=== PATIENT | male | born 1995 | race Caucasian/White ===

== ENCOUNTER 2018-06-11 16:15 | Emergency (ER) | payer BC ==
--- NOTE | 2018-06-11 16:22 | PDOC ---
Rapid Medical Evaluation Time Seen by Provider: 06/11/18 16:21 Medical Evaluation: 06/11/18 16:21 I performed a brief in-person evaluation of this patient. Chief complaint: Ear pain x 1 day, recent cold, history of ITP Pertinent physical exam findings: Afebrile, no mastoid tenderness, external ear normal I have ordered the following: None Patient will proceed to ED for further evaluation. Discharge Disposition - Diagnosis Ear pain, left - Referrals - Patient Instructions - Post Discharge Activity
[2018-06-11 16:25] VITALS: BP 151/85; PULSE 87; TEMP 98.5; BMI 24.3
--- NOTE | 2018-06-11 17:05 | PDOC ---
History of Present Illness - General Chief Complaint: Ear Problem Stated Complaint: EAR PAIN Time Seen by Provider: 06/11/18 16:21 History Source: Patient Exam Limitations: Clinical Condition - History of Present Illness Initial Comments: 06/11/18 17:13 Patient with no significant past medical history present with complaint of left ear pain since this morning which has been worsening. Denies fever, chills, decreased hearing. Denies any other symptoms. Denies JUNG, dizziness, N/V Timing/Duration: other (12hrs) Past History - Past Medical History Allergies/Adverse Reactions: Allergies Allergy/AdvReac Type Severity Reaction Status Date / Time No Known Allergies Allergy Verified 06/11/18 16:25 Home Medications: Ambulatory Orders Naproxen 500 mg PO BID PRN #20 tablet 06/11/18 Neomycin/Polymyxin B/Hydrocort [Wzpezsuk-Rggyqeiru-Id Ear Susp] 4 drop OT Q6H 5 Days #1 bottle 06/11/18 COPD: No - Immunization History Immunization Up to Date: Yes - Suicide/Smoking/Psychosocial Hx Smoking History: Never smoked Information on smoking cessation initiated: No Hx Alcohol Use: No Drug/Substance Use Hx: No Review of Systems - Review of Systems Able to Perform ROS?: Yes Is the patient limited Pashto proficient: No Constitutional: No: Fever, Malaise, Weakness HEENTM: Yes: Symptoms Reported, See HPI, Ear Pain (left). No: Eye Pain, Blurred Vision, Tearing, Recent change in vision, Double Vision, Cataracts, Ocular Prothesis, Ear Discharge, Nose Pain, Nose Congestion, Tinnitus, Nose Bleeding, Hearing Loss, Throat Pain, Throat Swelling, Mouth Pain, Dental Problems, Difficulty Swallowing, Mouth Swelling, Other Respiratory: No: Symptoms reported, See HPI, Cough, Orthopnea, Shortness of Breath, SOB with Exertion, SOB at Rest, Stridor, Wheezing, Productive cough, Hemoptysis, Other Cardiac (ROS): No: Symptoms Reported, See HPI, Chest Pain, Edema, Irregular Heart Rate, Lightheadedness, Palpitations, Syncope, Chest Tightness, Other ABD/GI: No: Nausea, Vomiting All Other Systems: Reviewed and Negative *Physical Exam - Vital Signs Last Vital Signs Temp Pulse Resp BP Pulse Ox 98.5 F 87 16 151/85 99 06/11/18 16:22 06/11/18 16:22 06/11/18 16:22 06/11/18 16:22 06/11/18 16:22 - Physical Exam Comments: 06/11/18 17:18 GENERAL: Well developed, well nourished. Awake and alert. No acute distress. HEENT: Moderate erythema in left ear canal. Tympanic membrane normal mall right ear canal exam. Normocephalic, atraumatic. PERRLA, EOMI. No conjunctival pallor. Sclera are non-icteric. Moist mucous membranes. Oropharynx is clear. NECK: Supple. Full ROM. CARDIOVASCULAR: Regular rate and rhythm. No murmurs, rubs, or gallops. Distal pulses are 2+ and symmetric. PULMONARY: No evidence of respiratory distress. Lungs clear to auscultation bilaterally. No wheezing, rales or rhonchi. ABDOMINAL: Soft. Non-tender. Non-distended. No rebound or guarding. No organomegaly. Normoactive bowel sounds. MUSCULOSKELETAL Normal range of motion at all joints. No tenderness to left TMJ which is worse with occlusion of mouth against resistance. SKIN: Warm and dry. Normal capillary refill. NEUROLOGICAL: Alert, awake, appropriate. Gait is normal without ataxia. PSYCHIATRIC: Cooperative. Good eye contact. Appropriate mood General Appearance: Yes: Nourished, Appropriately Dressed. No: Apparent Distress Medical Decision Making - Medical Decision Making 06/11/18 17:15 Patient with no significant past medical history present with complaint of left ear pain since this morning which has been worsening. Denies fever, chills, decreased hearing. Denies any other symptoms. Denies JUNG, dizziness, N/V Exam significant for moderate erythema in left inner ear canal. TM normal. right ear canal normal. mild tenderness over left TMJ which is worse with occlusion of mouth against resistance. Patient stable for outpatient treatment of otitis externa with neomycin- polymycin-hydrocort ear suspension and naproxen for TMJ arthralgia with oral surgery follow-up *DC/Admit/Observation/Transfer Diagnosis at time of Disposition: Ear pain, left Left otitis externa Qualifiers: Otitis externa type: unspecified type Chronicity: acute Qualified Code(s): H60.502 - Unspecified acute noninfective otitis externa, left ear TMJ arthralgia Qualifiers: Laterality: left Qualified Code(s): M26.622 - Arthralgia of left temporomandibular joint - Discharge Dispostion Disposition: HOME Condition at time of disposition: Stable Decision to Admit order: No - Prescriptions Prescriptions: Naproxen 500 mg PO BID PRN #20 tablet PRN Reason: jaw pain Neomycin/Polymyxin B/Hydrocort [Wjwxfjxk-Inpmdotqi-Uy Ear Susp] 4 drop OT Q6H 5 Days #1 bottle - Referrals Referrals: Scott Rivera MD [Non Staff, Medical] - - Patient Instructions Printed Discharge Instructions: TMJ Syndrome (Alternative Therapy), Temporomandibular Disorder Additional Instructions: Take prescribed medications as prescribed. Follow-up with referred dentist if left jaw pain does not improve in 4 days - Post Discharge Activity
== END 2018-06-11 17:15 | disposition home or self-care (01) ==
LOC: JERFT 16:15
DX: H60.502 Unspecified acute noninfective otitis externa, left ear (principal); M26.622 Arthralgia of left temporomandibular joint
CPT/HCPCS: 99281-25

== ENCOUNTER 2019-04-08 10:02 | Emergency (ER) | payer BC, OTHER ==
[2019-04-08 10:13] VITALS: BP 143/45; PULSE 71; TEMP 99.6; BMI 21.2
[2019-04-08] MEDS ORDERED: ACETAMINOPHEN 500 MG TABLET (FP) PO ONE (10:51)
[2019-04-08] MEDS ORDERED: ACETAMINOPHEN 325 MG TABLET (FP) ONE (10:53)
[2019-04-08 11:39] LABS: BASO % 0.5 % (0-2.0); EOS % 0.2 % (0-4.5); HEMATOCRIT 42.8 % (35.4-49); HEMOGLOBIN 14.6 GM/dL (11.7-16.9); LYMPH % 38.1 % (8-40); MCH 29.7 pg (25.7-33.7); MEAN CELL VOLUME 87.4 fl (80-96); MEAN PLT VOLUME 8.1 fl (7.5-11.1); MONO % 15.5 % (3.8-10.2); NEUT % 45.7 % (42.8-82.8); PLATELET COUNT 129 K/MM3 (134-434); RDW 13.3 % (11.9-15.9); WHITE BLOOD COUNT 4.3 K/mm3 (4.0-10.0)
[2019-04-08 11:50] LABS: INR 1.11 (0.83-1.09); PROTHROMBIN TIME (PATIENT) 13.1 SEC (9.7-13.0)
[2019-04-08 12:12] LABS: ALBUMIN 3.8 g/dl (3.4-5.0); BILIRUBIN,TOTAL 0.4 mg/dL (0.2-1); BLOOD UREA NITROGEN 22.8 mg/dL (7-18); CALCIUM 8.9 mg/dL (8.5-10.1); CREATININE 1.3 mg/dL (0.55-1.3); POTASSIUM 4.3 mmol/L (3.5-5.1)
--- NOTE | 2019-04-08 12:28 | PDOC ---
History of Present Illness - General History Source: Patient Exam Limitations: No Limitations - History of Present Illness Initial Comments: 04/08/19 11:26 23-year-old male presents to ED with complaints of fever since Thursday, myalgia , cough, and petechiae to his left shoulder and left chest. Patient states history of ITP in the past with frequent admissions with last admission being approximately 2-3 year ago at [facility]. Patient denies blood in his urine, bloody stool, coughing up blood, or recent head injury. Patient states took nothing for the fever above and decided come to the ER for further evaluation Is this a multiple visit Asthma Patient?: No Timing/Duration: other (3 to 4 days) Severity: moderate Associated Symptoms: reports: cough, fever/chills, other <Susan Tobin - Last Filed: 04/08/19 14:11> <Dorina Manzano - Last Filed: 04/09/19 19:54> - General Chief Complaint: Pain, Acute Stated Complaint: RE VISIT Time Seen by Provider: 04/08/19 10:28 Past History - Travel Traveled outside of the country in the last 30 days: No Close contact w/someone who was outside of country & ill: No - Past Medical History COPD: No Other medical history: ITP - Immunization History Immunization Up to Date: Yes - Psycho Social/Smoking Cessation Hx Smoking History: Never smoked Hx Alcohol Use: No Drug/Substance Use Hx: No Patient Lives Alone: No Lives with/in: parents <Susan Tobin - Last Filed: 04/08/19 14:11> <Dorina Manzano - Last Filed: 04/09/19 19:54> - Past Medical History Allergies/Adverse Reactions: Allergies Allergy/AdvReac Type Severity Reaction Status Date / Time No Known Allergies Allergy Verified 04/08/19 10:10 Home Medications: Ambulatory Orders NK [No Known Home Medication] 04/08/19 Review of Systems - Review of Systems Able to Perform ROS?: No Is the patient limited Turkish proficient: No Constitutional: Yes: Chills, Fever, Weakness HEENTM: No: Symptoms Reported Respiratory: Yes: Cough Cardiac (ROS): No: Symptoms Reported ABD/GI: No: Symptoms Reported : No: Symptoms Reported Musculoskeletal: No: Symptoms Reported Integumentary: Yes: Other (Petechiae) Neurological: No: Headache, Dizziness Endocrine: No: Symptoms Reported Hematologic/Lymphatic: No: Symptoms Reported <Susan Tobin - Last Filed: 04/08/19 14:11> *Physical Exam - Vital Signs Last Vital Signs Temp Pulse Resp BP Pulse Ox 99.6 F 71 18 143/45 L 100 04/08/19 10:11 04/08/19 10:11 04/08/19 10:11 04/08/19 10:11 04/08/19 10:45 - Physical Exam General Appearance: Yes: Nourished, Appropriately Dressed. No: Apparent Distress HEENT: positive: TMs Normal, Pharynx Normal. negative: Pale Conjunctivae Neck: positive: Supple Respiratory/Chest: positive: Lungs Clear, Normal Breath Sounds. negative: Respiratory Distress, Accessory Muscle Use Cardiovascular: positive: Regular Rhythm, Regular Rate. negative: Murmur Gastrointestinal/Abdominal: positive: Soft. negative: Tenderness Extremity: positive: Normal Inspection Integumentary: positive: Warm, Petechiae (To the left shoulder and left chest) Neurologic: positive: Motor Strength 5/5 (Ambulatory) <Susan Tobin - Last Filed: 04/08/19 14:11> - Vital Signs Last Vital Signs Temp Pulse Resp BP Pulse Ox 99.6 F 71 18 143/45 L 100 04/08/19 10:11 04/08/19 10:11 04/08/19 10:11 04/08/19 10:11 04/08/19 10:45 <Dorina Manzano - Last Filed: 04/09/19 19:54> ED Treatment Course - LABORATORY CBC & Chemistry Diagram: 04/08/19 11:15 04/08/19 11:15 - ADDITIONAL ORDERS Additional order review: Laboratory Results 04/08/19 04/08/19 11:15 11:15 PT with INR 13.10 H INR 1.11 H Sodium 139 Potassium 4.3 Chloride 105 Carbon Dioxide 30 Anion Gap 5 L BUN 22.8 H Creatinine 1.3 Est GFR (CKD-EPI)AfAm 89.14 Est GFR (CKD-EPI)NonAf 76.91 Random Glucose 87 Calcium 8.9 Total Bilirubin 0.4 AST 44 H ALT 66 H Alkaline Phosphatase 100 Total Protein 7.0 Albumin 3.8 04/08/19 11:15 RBC 4.90 MCV 87.4 MCHC 34.0 RDW 13.3 MPV 8.1 Neutrophils % 45.7 Lymphocytes % 38.1 Monocytes % 15.5 H Eosinophils % 0.2 Basophils % 0.5 - Medications Given in the ED: ED Medications Discontinued Medications Generic Name Dose Route Start Last Admin Trade Name Freq PRN Reason Stop Dose Admin Acetaminophen 975 mg 04/08/19 10:51 04/08/19 11:01 Tylenol - PO 04/08/19 10:52 975 mg ONCE ONE Administration <Susan Tobin - Last Filed: 04/08/19 14:11> - LABORATORY CBC & Chemistry Diagram: 04/08/19 11:15 04/08/19 11:15 - ADDITIONAL ORDERS Additional order review: Laboratory Results 04/08/19 04/08/19 11:15 11:15 PT with INR 13.10 H INR 1.11 H Sodium 139 Potassium 4.3 Chloride 105 Carbon Dioxide 30 Anion Gap 5 L BUN 22.8 H Creatinine 1.3 Est GFR (CKD-EPI)AfAm 89.14 Est GFR (CKD-EPI)NonAf 76.91 Random Glucose 87 Calcium 8.9 Total Bilirubin 0.4 AST 44 H ALT 66 H Alkaline Phosphatase 100 Total Protein 7.0 Albumin 3.8 04/08/19 11:15 RBC 4.90 MCV 87.4 MCHC 34.0 RDW 13.3 MPV 8.1 Neutrophils % 45.7 Lymphocytes % 38.1 Monocytes % 15.5 H Eosinophils % 0.2 Basophils % 0.5 - Medications Given in the ED: ED Medications Discontinued Medications Generic Name Dose Route Start Last Admin Trade Name Freq PRN Reason Stop Dose Admin Acetaminophen 975 mg 04/08/19 10:51 04/08/19 11:01 Tylenol - PO 04/08/19 10:52 975 mg ONCE ONE Administration <Dorina Manzano - Last Filed: 04/09/19 19:54> Medical Decision Making - Medical Decision Making 04/08/19 11:42 Chief complaint: URI symptoms concerning for flu. Patient also with history of ITP with noted petechiae to left chest and left shoulder. No other complaints at this time. Exam: Patient with low-grade temp of 99.6. Patient with noted linear petechiae to left chest and left shoulder. Surrounding skin intact. Patient appears flulike. Plan: Labs, influenza and Tylenol ordered 04/08/19 12:43 Laboratory Tests 04/08/19 04/08/19 04/08/19 10:45 11:15 11:15 WBC 4.3 Hgb 14.6 Hct 42.8 Plt Count 129 L Monocytes % 15.5 H PT with INR INR Sodium 139 Potassium 4.3 Chloride 105 Carbon Dioxide 30 Anion Gap 5 L BUN 22.8 H Creatinine 1.3 Est GFR (CKD-EPI)AfAm 89.14 Est GFR (CKD-EPI)NonAf 76.91 Random Glucose 87 Calcium 8.9 Total Bilirubin 0.4 AST 44 H ALT 66 H Alkaline Phosphatase 100 Total Protein 7.0 Albumin 3.8 Influenza A (Rapid) Negative Influenza B (Rapid) Positive A 04/08/19 11:15 WBC Hgb Hct Plt Count Monocytes % PT with INR 13.10 H INR 1.11 H Sodium Potassium Chloride Carbon Dioxide Anion Gap BUN Creatinine Est GFR (CKD-EPI)AfAm Est GFR (CKD-EPI)NonAf Random Glucose Calcium Total Bilirubin AST ALT Alkaline Phosphatase Total Protein Albumin Influenza A (Rapid) Influenza B (Rapid) Patient positive for influenza B. Case will be discussed with hospitalist for admission secondary to platelet count of 129. 04/08/19 14:[address] Mohr hospitalist and feels patient may be discharged discharge home with follow-up with the [facility]. Patient also given precaution instructions along with work note for 3 days and avoid any contact sports or strenuous activity. <Susan Tobin - Last Filed: 04/08/19 14:11> - Medical Decision Making The patient was seen and evaluated in conjunction with midlevel provider under my direct supervision, ancillary studies were reviewed. I agree with the plan as outlined with YONATHAN Tobin. HPI, workup/dispo as outlined. VS reviewed, wnl. +flu B positive, will treat tamiflu mild thrombocytopenia noted, +petechiae INITIALLY planned to admit to medical service, hospitalist. had spoken with Dr Wilkerson, no tamiflu indicated, as no particular risk for complications and can monitor supportively, and no e/o bleeding. plt count only mildly low, can be monitoried return precautions, DC stable condition. primary, clinic followup. 04/08/19 12:47 04/09/19 19:53 <Dorina Manzano - Last Filed: 04/09/19 19:54> Discharge - Discharge Information Problems reviewed: Yes - Admission No <CristaVance - Last Filed: 04/08/19 14:11> - Discharge Information Problems reviewed: Yes <Dorina Manzanoilya - Last Filed: 04/09/19 19:54> - Discharge Information Clinical Impression/Diagnosis: ITP secondary to infection Condition: Fair Disposition: HOME - Follow up/Referral Referrals: Kip Kerr MD [Staff Physician] - - Patient Discharge Instructions Patient Printed Discharge Instructions: DI for Influenza -- Adult Additional Instructions: no strenous activity x 1 week Drink plenty fluids. Take Tylenol as needed for fever and discomfort. Return to ED if your symptoms worsen. Otherwise follow-up with referred physician - Post Discharge Activity Work/Back to School Note: Back to Work
== END 2019-04-08 14:15 | disposition home or self-care (01) ==
LOC: JER 10:02 → UNDOADMIN 13:43 → JERBED 13:43 → JER 14:15
DX: J10.1 Influenza due to other identified influenza virus with other respiratory manifestations (principal); D69.59 Other secondary thrombocytopenia
CPT/HCPCS: 36415; 80053; 85025; 85610; 87804; 99283-25

== ENCOUNTER 2020-02-18 21:48 | Emergency (ER) | payer BC ==
[2020-02-18 21:54] VITALS: BP 136/76; PULSE 68; TEMP 98.6; BMI 22.0
[2020-02-18] MEDS ORDERED: ERYTHROMYCIN 0.5% OPHTHALMIC OINTMENT 3.5 GM TUBE OS ONE (22:05)
[2020-02-18] MEDS ORDERED: ERYTHROMYCIN 0.5% OPHTHALMIC OINTMENT 3.5 GM TUBE ONE (22:10)
== END 2020-02-18 22:23 | disposition home or self-care (01) ==
LOC: JERFT 21:48
DX: H16.002 Unspecified corneal ulcer, left eye (principal)
CPT/HCPCS: 99283-25